=== PATIENT | male | born 2000 | race Caucasian/White ===

== ENCOUNTER 2019-03-27 00:53 | Emergency (ER) | payer MEDICAID, SELFPAY ==
[2019-03-27 01:51] LABS: CKMB 3.1 ng/mL (0-6.6)
[2019-03-27 01:52] LABS: Alcohol 234 mg/dL (Less than 10)
[2019-03-27 01:53] LABS: #Basophils 0.1 thou/uL (0.0-0.2); #Eosinphils 0.4 thou/uL (0.0-0.7); #Lymphocytes 3.4 thou/uL (1.20-3.40); #Monocytes 0.7 thou/uL (0.11-0.59); #Neutrophils 5.3 thou/uL (1.40-6.50); %Basophils 1.4 % (0.0-1.0); %Monocytes 6.9 % (0.0-4.0); %Neutrophils 53.7 % (31.0-61.0); Hemoglobin 14.9 g/dL (14.0-18.0); Mean Corpuscular HGB CONC 32.5 g/dL (32.0-36.0); Mean Corpuscular Hemoglobin 28.8 pg (25.0-35.0); Mean Corpuscular Volume 88.7 fL (78.0-98.0); Mean Platelet Volume 6.4 fL (7.4-10.4); Platelet Count 298 thou/uL (130-400); RBC Distribution Width 12.4 % (11.5-14.5); Red Blood Cell (RBC) Count 5.16 mill/uL (4.00-5.20); White Blood Cell (WBC) Count 9.9 thou/uL (4.8-10.8)
[2019-03-27 02:08] LABS: ALT (SGPT) 29 U/L (8-55); AST (SGOT) 32 U/L (5-34); Albumin 5.4 g/dL (3.5-5.0); Alkaline Phosphatase 76 U/L (Less than 750); Anion Gap 23 mmol/L (10-20); BUN (Urea Nitrogen) 15 mg/dL (8.9-20.6); Bilirubin, Total 0.3 mg/dL (0.2-1.2); Calc. Creatinine Clearance 0 mL/min (70-130); Calcium 9.5 mg/dL (7.8-10.44); Carbon Dioxide 18 mmol/L (22-29); Chloride 102 mmol/L (98-107); Estimated GFR-MDRD Greater than 90; Globulin 3.3 g/dL (2.4-3.5); Glucose 117 mg/dL (70-105); Potassium 3.7 mmol/L (3.5-5.1); Protein, Total 8.7 g/dL (6.0-8.3); Sodium 139 mmol/L (136-145)
[2019-03-27] MEDS ORDERED: Ketamine 50 MG/ML (10ML VIAL) ONE (02:26)
[2019-03-27] MEDS ORDERED: Rocuronium Bromide 50 MG/5 ML VIAL ONE (02:28)
--- NOTE | 2019-03-27 11:28 | RAD ---
PORTABLE CHEST: DATE: 03/27/2019. FINDINGS: An AP portable film at 0122 is off center but was taken post endotracheal tube placement. The tip of the ET tube is currently in the right mainstem bronchus and should be retracted. There is resulting atelectasis in the left lung. The right lung is relatively clear. The heart is probably normal in size given AP technique and obliquing of the patient. IMPRESSION: Endotracheal tube should be retracted several centimeters. POS: HOME
--- NOTE | 2019-03-27 11:35 | RAD ---
PORTABLE CHEST: DATE: 03/27/2019. FINDINGS: An AP portable film at 0130 was taken after retraction of the endotracheal tube. The tip is now in t he distal portion of the trachea just above the constantin. The lungs seem relatively clear, though ther e may be some patchy opacity in the left upper lobe. Followup films will be needed to recheck this. There are no effusions. The heart size is normal for AP technique and body habitus. There is no sh ift of the mediastinum. There is what I presume to be an NG tube present in pharyngeal region that appears to be coiled there and not taking an appropriate course towards the stomach. IMPRESSION: 1. Endotracheal tube retracted and is now just above the bifurcation of the trachea. 2. Presumed nasogastric tube coiled in pharyngeal region and should be repositioned. POS: HOME
== END 2019-03-27 02:14 | disposition home or self-care (01) ==
LOC: BURERS 00:53
DX: F10.129 Alcohol abuse with intoxication, unspecified (principal)
CPT/HCPCS: 31500; 71045; 80053; 80307; 82553; 84484; 85025; 96360